=== PATIENT | male | born 1955 | race Caucasian/White ===

== ENCOUNTER 2018-07-24 03:56 | Emergency (ER) | payer BC ==
[2018-07-24] MEDS ORDERED: Aspirin 81 MG Tab.Chew PO ONE (04:24)
[2018-07-24] MEDS ORDERED: Sodium Chloride 0.9% 1,000 ML IV SCH (04:50)
[2018-07-24] MEDS ORDERED: Heparin Sodium 5,000 Units/ML Vial IVPUSH ONE (04:55)
[2018-07-24] MEDS ORDERED: Heparin Sodium/D5W 25,000 UNITS/500 ML BAG IV SCH (04:55)
--- NOTE | 2018-07-24 05:09 | EDM.PDOC ---
ED HPI GENERAL MEDICAL PROBLEM - General Chief Complaint: Chest Pain Stated Complaint: CHEST PAIN Time Seen by Provider: 07/24/18 04:45 Source of Information: Reports: Patient, Family History Limitations: Reports: No Limitations - History of Present Illness INITIAL COMMENTS - FREE TEXT/NARRATIVE: This is a pleasant 62yo M here for chest pain. He states his chest pain started 3 days ago and felt like chest pain he has had when he had his prior AK. He states it went away when he took nitro. He has had a few more episodes which have resolved with nitro and the last episode did not resolve quickly with nitro and took a while so he came into the ER. His last stress test was 2014. His last Cath was 2012 without further stenting of the LAD. He had a VIDHI placed 7 years ago of the LAD and has been on Effient. His Effient was stopped a few months ago after Consultation with Dr. Alarcon ([facility]) but he restarted Effient when his chest pain started 3 days ago. Patient currently denies any chest pain. Onset Date: 07/21/18 Duration: Day(s):, Other (multiple episodes ) Quality: Reports: Pressure, Sharp Severity: Moderate Improves with: Reports: None Worsens with: Reports: None Associated Symptoms: Reports: Chest Pain Chest Pain Score (Numeric/FACES): 3 - Related Data Allergies Allergy/AdvReac Type Severity Reaction Status Date / Time No Known Allergies Allergy Verified 07/24/18 04:24 Home Meds: Home Meds Aspirin 81 mg PO DAILY 07/24/18 [History] Fish Oil/[place]-3 Fatty Acids [Fish Oil 1,000 MG] 1 each PO DAILY 07/24/18 [ History] Folic Acid 0.4 mg PO DAILY 07/24/18 [History] Losartan Potassium 25 mg PO DAILY 07/24/18 [History] Metoprolol Tartrate 25 mg PO BID 07/24/18 [History] Multivit-Min/FA/Lycopen/Lutein [Centrum Silver Men Tablet] 1 each PO DAILY 07/24 [History] Rosuvastatin Calcium 40 mg PO BEDTIME 07/24/18 [History] Thiamine HCl [Vitamin B-1] 250 mg PO DAILY 07/24/18 [History] Past Medical History HEENT History: Reports: Impaired Vision Cardiovascular History: Reports: High Cholesterol, Hypertension, AK, Stents Musculoskeletal History: Reports: Other (See Below) Other Musculoskeletal History: Finger pinned - Past Surgical History GI Surgical History: Reports: Hernia Repair/Other Social & Family History - Tobacco Use Smoking Status *Q: Former Smoker Years of Tobacco use: 20 Packs/Tins Daily: 1 Used Tobacco, but Quit: Yes Month/Year Tobacco Last Used: 2001 Second Hand Smoke Exposure: No - Caffeine Use Caffeine Use: Reports: Coffee - Alcohol Use Days Per Week of Alcohol Use: 7 Number of Drinks Per Day: 3 Total Drinks Per Week: 21 - Recreational Drug Use Recreational Drug Use: No ED ROS GENERAL - Review of Systems Review Of Systems: ROS reveals no pertinent complaints other than HPI. ED EXAM, GENERAL - Physical Exam Exam: See Below Exam Limited By: No Limitations General Appearance: Alert, WD/WN, No Apparent Distress Eye Exam: Bilateral Eye: EOMI, PERRL Ears: Normal External Exam Nose: Normal Inspection Throat/Mouth: Normal Inspection Head: Atraumatic, Normocephalic Neck: Normal Inspection Respiratory/Chest: No Respiratory Distress, Lungs Clear, Normal Breath Sounds Cardiovascular: Normal Peripheral Pulses, Regular Rate, Rhythm, No Edema Peripheral Pulses: 2+: Dorsalis Pedis (L), Dorsalis Pedis (R) GI/Abdominal: Normal Bowel Sounds Back Exam: Normal Inspection Extremities: Normal Inspection Neurological: Alert, Oriented, CN II-XII Intact, Normal Cognition Psychiatric: Normal Affect, Normal Mood Skin Exam: Warm, Dry, Intact Course - Vital Signs Last Recorded V/S: Last Vital Signs Temp 35.7 C 07/24/18 03:56 Pulse 57 L 07/24/18 05:38 Resp 16 07/24/18 05:38 BP 171/83 H 07/24/18 05:38 Pulse Ox 98 07/24/18 05:38 - Orders/Labs/Meds Orders: Active Orders 24 hr Category Date Time Status Cardiac Monitoring [RC] .As Directed Care 07/24/18 04:22 Active EKG Documentation Completion [RC] ASDIRECTED Care 07/24/18 04:22 Active Heparin Sodium/D5W [Heparin 25,000 Units in D5W 500 ML] Med 07/24/18 04:55 Active 25,000 units in 500 ml IV TITRATE Sodium Chloride 0.9% [Normal Saline] 1,000 ml Med 07/24/18 04:50 Active IV ASDIRECTED Medication Orders Heparin Sodium/Dextrose (Heparin 25,000 Units In D5w 500 Ml) 25,000 units in 500 mls @ 15.785 mls/hr IV TITRATE LATASHA; Protocol Last Admin: 07/24/18 05:16 Dose: 12 units/kg/hr, 15.785 mls/hr Sodium Chloride (Normal Saline) 1,000 mls @ 75 mls/hr IV ASDIRECTED LATASHA Last Admin: 07/24/18 05:15 Dose: 75 mls/hr Labs: Laboratory Tests 07/24/18 07/24/18 07/24/18 Range/Units 04:20 04:21 04:21 WBC 7.7 (4.0-11.0) K/uL RBC 4.53 (4.50-6.50) M/uL Hgb 13.8 (13.0-18.0) g/dL Hct 39.5 L (40.0-54.0) % MCV 87 (76-96) fL MCH 30.5 (27.0-32.0) pg MCHC 34.9 (31.0-35.0) g/dL RDW 12.7 (11.0-16.0) % Plt Count 196 (150-400) K/uL MPV 9.1 (6.0-10.0) fL Neut % (Auto) 50.9 (45.0-70.0) % Lymph % (Auto) 33.9 (20.0-40.0) % [place] % (Auto) 12.7 H (3.0-10.0) % Eos % (Auto) 2.2 (1.0-5.0) % Baso % (Auto) 0.3 (0.0-0.5) % Neut # (Auto) 3.91 (2.00-7.50) K/uL Lymph # (Auto) 2.61 (1.50-4.00) K/uL [place] # (Auto) 0.98 H (0.20-0.80) K/uL Eos # (Auto) 0.17 (0.04-0.40) K/uL Baso # (Auto) 0.02 (0.02-0.10) K/uL PT 10.3 (9.0-11.5) sec INR 1.0 (1.0-3.5) APTT 23.0 L (24.4-33.2) SECONDS Sodium 141 (136-145) mmol/L Potassium 5.0 (3.5-5.1) mmol/L Chloride 103 (98-107) mmol/L Carbon Dioxide 25.4 (21.0-32.0) mmol/L Anion Gap 17.6 H (5.0-15.0) mmol/L BUN 27 H (8-26) mg/dL Creatinine 1.15 (0.70-1.30) mg/dL Est Cr Clr Drug Dosing 56.45 mL/min Estimated GFR (MDRD) > 60 (>60) MLS/MIN BUN/Creatinine Ratio 23.5 (6-25) Glucose 130 H (74-100) mg/dL Calcium 9.2 (8.5-10.1) mg/dL Troponin I 0.328 H* (0.000-0.060) ng/mL Meds: Medications Generic Name Dose Route Start Last Admin Trade Name Freq PRN Reason Stop Dose Admin Heparin Sodium/Dextrose 25,000 units in 500 mls @ 15.785 mls/hr 07/24/18 04: 55 07/24/18 05:16 Heparin 25,000 Units In D5w 500 Ml IV 12 units/kg/hr TITRATE LATASHA 15.785 mls/hr Administration Protocol 12 UNITS/KG/HR Sodium Chloride 1,000 mls @ 75 mls/hr 07/24/18 04:50 07/24/18 05:15 Normal Saline IV 75 mls/hr ASDIRECTED LATASHA Administration Discontinued Medications Generic Name Dose Route Start Last Admin Trade Name Freq PRN Reason Stop Dose Admin Aspirin 243 mg 07/24/18 04:24 07/24/18 04:17 Aspirin PO 07/24/18 04:25 243 mg ONETIME ONE Administration Heparin Sodium (Porcine) 4,000 units 07/24/18 04:55 07/24/18 04:58 Heparin Sodium IVPUSH 07/24/18 04:56 4,000 units .BOLUS ONE Administration - Re-Assessments/Exams Free Text/Narrative Re-Assessment/Exam: Patient was given 3 more aspirin for a total of 4 baby aspirin. Departure - Departure Time of Disposition: 06:40 Disposition: DC/Tfer to Acute Hospital 02 Reason for Transfer *Q: Primary PCI Indicated Condition: Good Clinical Impression: Acute coronary syndrome, NSTEMI (non-ST elevated myocardial infarction), Elevated troponin level Forms: ED Department Discharge - Problem List & Annotations (1) Acute coronary syndrome SNOMED Code(s): 615405618 Code(s): I24.9 - ACUTE ISCHEMIC HEART DISEASE, UNSPECIFIED Status: Acute Priority: High Current Visit: No (2) Elevated troponin level SNOMED Code(s): 799119492, 113450525, 405798664 Code(s): R74.8 - ABNORMAL LEVELS OF OTHER SERUM ENZYMES Status: Acute Priority: High Current Visit: No (3) NSTEMI (non-ST elevated myocardial infarction) SNOMED Code(s): 18409180 Code(s): I21.4 - NON-ST ELEVATION (NSTEMI) MYOCARDIAL INFARCTION Status: Acute Priority: High Current Visit: No - Problem List Review Problem List Initiated/Reviewed/Updated: Yes - My Orders Last 24 Hours: My Active Orders 07/24/18 04:22 Cardiac Monitoring [RC] .As Directed EKG Documentation Completion [RC] ASDIRECTED 07/24/18 04:50 Sodium Chloride 0.9% [Normal Saline] 1,000 ml IV ASDIRECTED 07/24/18 04:55 Heparin Sodium/D5W [Heparin 25,000 Units in D5W 500 ML] 25,000 units in 500 ml IV TITRATE - Assessment/Plan Last 24 Hours: My Active Orders 07/24/18 04:22 Cardiac Monitoring [RC] .As Directed EKG Documentation Completion [RC] ASDIRECTED 07/24/18 04:50 Sodium Chloride 0.9% [Normal Saline] 1,000 ml IV ASDIRECTED 07/24/18 04:55 Heparin Sodium/D5W [Heparin 25,000 Units in D5W 500 ML] 25,000 units in 500 ml IV TITRATE Plan: Patient to be transferred to [facility] under care of accepting Physician Dr. SUAZO. Patient labs to be sent. Patient will go via [facility].
== END 2018-07-24 07:10 ==
LOC: LB.ED 03:56
DX: I21.4 Non-ST elevation (NSTEMI) myocardial infarction (principal); I24.9 Acute ischemic heart disease, unspecified; I10 Essential (primary) hypertension; R79.89 Other specified abnormal findings of blood chemistry; Z95.5 Presence of coronary angioplasty implant and graft; Z88.6 Allergy status to analgesic agent; Z79.899 Other long term (current) drug therapy; Z87.891 Personal history of nicotine dependence
CPT/HCPCS: 36415; 80048; 84484; 85025; 85610; 85730; 93005; 96374; 99285-25; A0425; A0429; A9270-GY; J1644; J7030

== ENCOUNTER 2022-06-27 23:07 | Inpatient (IN) | payer BC ==
[2022-06-27] MEDS ORDERED: Nitroglycerin 0.4 MG Tab.SL SL PRN (23:32)
[2022-06-27] MEDS ORDERED: Sodium Chloride 0.9% 10 ML Syringe FLUSH PRN (23:32)
[2022-06-27] MEDS ORDERED: Aspirin 81 MG Tab.Chew PO ONE (23:34)
[2022-06-27] MEDS ORDERED: Labetalol 100 MG/20 ML MDV IVPUSH ONE (23:36)
[2022-06-27] MEDS ORDERED: Labetalol 100 MG/20 ML MDV ONE (23:57)
[2022-06-28] MEDS ORDERED: Morphine 4 MG/ML VIAL IVPUSH ONE (00:09)
[2022-06-28] MEDS ORDERED: Morphine 4 MG/ML VIAL ONE (00:21)
[2022-06-28] MEDS ORDERED: Heparin Sodium 5,000 Units/ML Vial IVPUSH ONE (01:11)
[2022-06-28] MEDS ORDERED: Clopidogrel 75 MG Tab PO ONE (01:22)
[2022-06-28] MEDS ORDERED: Lactated Ringers 1,000 ML IV SCH (01:30)
[2022-06-28] MEDS: Heparin Sodium/D5W 25,000 UNITS/500 ML BAG IV SCH ×2 (01:40→02:25)
[2022-06-28] MEDS ORDERED: Metoprolol Succinate 25 MG Tab.ER PO SCH (09:15)
[2022-06-28] MEDS ORDERED: Nitroglycerin/D5W 25 MG/250 ML BOTTLE IV SCH (10:15)
== END 2022-06-28 11:20 | DRG 190 ==
LOC: LB.ED 23:07 → LB.MS 06-28 01:53
PROVIDERS: ADMIT Surgery; ATTEND Surgery
DX: I21.4 Non-ST elevation (NSTEMI) myocardial infarction (principal); H54.7 Unspecified visual loss; E78.00 Pure hypercholesterolemia, unspecified; I10 Essential (primary) hypertension; Z20.822 Contact with and (suspected) exposure to COVID-19; I25.10 Atherosclerotic heart disease of native coronary artery without angina pectoris; Z79.82 Long term (current) use of aspirin; Z95.5 Presence of coronary angioplasty implant and graft
CPT/HCPCS: 36415; 71045; 80048; 83735; 83880; 84100; 84484; 85027; 85379; 85730; 93005; 96374; 96375; 99285-25; A9270-GY; J1644; J2270; J3490; J7120; U0002